=== PATIENT | female | born 1965 | race Caucasian/White ===

== ENCOUNTER 2018-04-16 07:23 | Day surgery (SDC) | payer BC ==
[2018-04-11 12:29] VITALS: BMI 33.0
[2018-04-16 08:34] LABS: BASO # 0.05 K/mm3 (0.0-2.0); BASO % 0.4 % (0.0-3.0); EOS # 0.5 (0.0-0.7); EOS % 4.3 % (1.5-5.0); GRAN # 7.11 (1.4-6.5); GRAN % 63.9 % (50.0-68.0); HEMOGLOBIN 14.8 g/dL (12.0-16.0); LYMPH # 2.8 (1.2-3.4); LYMPH % 24.8 % (22.0-35.0); MEAN CELL VOLUME 83.4 fl (80.0-105.0); MEAN CORPUSCULAR HEMOGLOBIN 28.6 pg (25.0-35.0); MEAN CORPUSCULAR HGB CONC 34.3 g/dl (31.0-37.0); MEAN PLATELET VOLUME 10.4 fl (7.0-11.0); MONO # 0.7 (0.1-0.6); MONO % 6.6 % (1.0-6.0); RBC 5.18 10^6/uL (3.5-6.1); RED CELL DISTRIBUTION WIDTH 13.5 % (11.5-14.5); WHITE BLOOD COUNT 11.2 10^3/uL (4.5-11.0)
[2018-04-16 08:43] LABS: BLOOD UREA NITROGEN 29 mg/dL (7-21); CALCIUM 9.6 mg/dL (8.4-10.5); GFR NON-AFRICAN AMERICAN > 60
[2018-04-16 08:44] LABS: INR 0.89; PARTIAL THROMBOPLASTIN TIME 29.6 Seconds (25.1-36.5); PROTHROMBIN TIME 10.2 SECONDS (9.4-12.5)
[2018-04-16] MEDS ORDERED: Iodixanol 320 MG/ML 200 ML BOTTLE IV ONE (10:59)
[2018-04-16] MEDS ORDERED: Lidocaine 2% Inj (20ml) ONE (10:59)
[2018-04-16] MEDS ORDERED: Midazolam 2 MG/2 ML VIAL ONE ×2 (11:11→11:15)
[2018-04-16] MEDS ORDERED: Eptifibatide 20 mg/10mL Inj IVP ONE (11:27)
[2018-04-16] MEDS ORDERED: Iohexol 350mgl/ml 50 ML ONE (11:35)
[2018-04-16] MEDS ORDERED: Eptifibatide 0.75 mg/ml 75 MG/100 ML BOTTLE IV ONE (11:36)
[2018-04-16] MEDS ORDERED: Iodixanol 320 MG/ML 100 ML BOTTLE IV ONE (11:42)
--- NOTE | 2018-04-16 11:45 | CARD ---
APPROVED REPORT Date of service: 04/16/2018 EKG Measurement Heart [id number] IN 222P59 [id number] <Conclusion> Sinus rhythm with 1st degree AV block Possible Left atrial enlargement Rightward axis PRWP NSSTW changes Prolonged QTc
[2018-04-16] MEDS ORDERED: Sodium Chloride 0.9% 1,000 ML IV SCH (12:00)
--- NOTE | 2018-04-16 13:16 | CARDCATH ---
PROCEDURE DATE: 04/16/2018 HISTORY: The patient is a 53-year-old woman who presents with progressive exertional angina and shortness of breath. She was found to have mitral regurgitation on echocardiogram. Stress test was notable for exertional anginal symptoms but nuclear studies were negative. Because of this, cardiac catheterization was recommended. PROCEDURE: Left heart catheterization with coronary aortography and left ventriculogram followed by PTCA and stent of 2 lesions in the circumflex artery. The right femoral artery was cannulated with 6-Luxembourger sheath. There were no complications. I performed moderate sedation which included the presence of an independent trained observer that assisted in monitoring the patient's level of consciousness and physiologic status. After administration of Versed and fentanyl, my intra service time was 45 minutes. The findings on catheterization revealed a left ventricle that contracted normally. Estimated ejection fraction was 60-65%. There was 2-3 plus mitral regurgitation noted. Her coronary anatomy revealed a right-dominant circulation. The RCA revealed diffuse atherosclerosis with a 60-70% stenoses in the proximal portion of the posterior lateral branch as well as a 60-70% stenosis at the takeoff of the PDA. The left main artery was unremarkable. The LAD revealed diffuse atherosclerosis throughout its tree. There is 80% stenoses at the takeoff of the first septal embroidery designer followed by another 70-80% stenosis at the takeoff of the first diagonal vessel. The circumflex artery consisted of a large obtuse marginal branch. There is a 70% stenosis in the midportion of the circumflex artery followed by 90% stenosis in the midportion of the obtuse marginal branch. The patient was started on intravenous Angiomax and was given IV Integrilin. The guiding catheter was placed in the ostium of the left main artery. An 0.014 ATW wire was used to cross both lesions in the circumflex artery. This was then followed by 2.0 balloon utilized to predilate both lesions. This was followed by implantation of drug-eluting stents in both lesions of the circumflex artery and obtuse marginal branch. Repeat coronary aortography reveals an excellent result with no residual stenosis and JAUN III flow. Angio-Seal was used to close the femoral artery site. The patient tolerated the procedure well. In summary, the procedure was successful PTCA and stent of 2 lesions in the circumflex artery with drug-eluting stent. Cardiac catheterization reveals triple vessel CAD with normal LV function. 2-3+ mitral regurgitation was noted. Given these findings, the patient will need to remain on aspirin indefinitely and Effient for at least a year. She was intolerant to Plavix. We will reevaluate her mitral regurgitation after revascularizing the circumflex artery. In addition, we will bring her back in 1 week for PTCA and stent of the 2 lesions in the LAD. Ty Box MD
--- NOTE | 2018-04-16 13:42 | CARD ---
APPROVED REPORT Date of service: 04/16/2018 EKG Measurement Heart [id number] LA [id number] <Conclusion> Sinus rhythm with 1st degree AV block Possible Left atrial enlargement PRWP Rightward axis NSSTW changes Prolonged QT
[2018-04-16 23:30] VITALS: RESP 20
--- NOTE | 2018-04-17 00:58 | HP ---
DATE OF EXAM: 04/16/2018 HISTORY OF PRESENT ILLNESS: The patient is a 53-year-old female who was admitted after the patient underwent cardiac catheterization by Dr. Ty Box today. The patient was seen and examined in the cardiac orthodontic laboratory technician. The patient was admitted after the patient underwent a cardiac catheterization and angioplasty of the left circumflex artery. CODE STATUS: Full code. LIVING WILL ADVANCE DIRECTIVE: None. Height is 5 feet 11 inches. ALLERGIES: Penicillin, clopidogrel. The patient's BMI is 33. PAST MEDICAL AND SURGICAL HISTORY: History of hypertension, history of hyperlipidemia, occasional alcohol use, history of tubal ligation. HOME MEDICATIONS: Hydralazine 25 mg twice a day, Norvasc 10 mg daily, Lasix 20 mg daily, Coreg 6.25 twice a day, Hemp extract for anxiety, Lipitor 40 mg daily, Ecotrin 81 mg daily, Plavix 75 mg daily. SOCIAL HISTORY: Occasional alcohol use. Denies smoking. Denies drug use. Denies communicable transmissible disease. PHYSICAL EXAMINATION: GENERAL: The patient was seen in the holding area of the cardiac orthodontic laboratory technician. VITAL SIGNS: T max is 98.4. Telemetry, sinus rhythm, heart rate 74, 78, 82, blood pressure 164/81, 140/78, respirations 17 to 18. HEENT: Head examination is normocephalic, atraumatic. HEENT examination shows pinkish conjunctivae. Anicteric sclerae. Dry oral mucosa. NECK: No neck rigidity. CHEST: Symmetrical. CARDIOPULMONARY: Examination , S2, regular rhythm. No audible murmur, gallop or rub. LUNGS: Shows no audible crackle, rales or wheezing. ABDOMEN: Soft. Positive bowel sound. GENITALIA: Female. RECTAL: Deferred. EXTREMITIES: Shows positive groin dressing. No bleeding, hematoma noted. Positive palpable pulses of the lower extremity noted. MUSCULOSKELETAL: Shows a body mass index of 33.1. Gait examination not tested because the patient is on bedrest. VASCULAR: Palpable pulses. DIAGNOSTIC DATA: On 04/16/2018, WBC 11.2, hemoglobin and hematocrit 14.8, 43.2, platelet 312. PT/PTT 10.2, 29.6. Sodium 138, potassium 4.0, chloride 101, CO2 28, anion gap 13, BUN 29, creatinine 0.7, GFR is greater than 60, glucose 145, calcium 9.6. Urine negative. The patient's blood type is B+. The patient had a cardiac catheterization with successful angioplasty and stent placement of the two lesions of the left circumflex artery with drug-eluting stent, +2 to 3+ mitral regurgitation was noted. IMPRESSION AND PLAN: 1. Exertional angina with symptoms of exertional chest pain and shortness of breath. 2. Moderate mitral regurgitation. 3. Abnormal cardiac stress test with exertional angina. 4. Status post cardiac catheterization. 5. 60% to 70% stenosis of the proximal portion of the posterior lateral branch of the right coronary artery and 60% to 70% stenosis at the takeoff of the posterior PDA. 6. 80% stenosis at the takeoff of the first septal oracle forms developer followed by a 70% to 80% stenosis of the takeoff of the first diagonal vessel. 7. 70% stenosis of the midportion of the left circumflex followed by 90% stenosis of the midportion of the obtuse marginal branch. 8. Status post successful angioplasty and stent placement of the two lesions of the left circumflex artery with drug-eluting stent placement. 9. Triple-vessel coronary artery disease. 10. 2 to 3+ mitral regurgitation. 11. History of hypertension, hyperlipidemia. 12. Hyperglycemia. 13. B positive blood type. 14. Exertional angina with dyspnea on exertion with minimal exertion during the nuclear stress test. 15. Left ventricular ejection fraction of 53%. 16. 2 to 3+ mitral regurgitation. 17. Triple-vessel coronary artery disease. 18. Right axis deviation. 19. Hypertensive cardiovascular disease. 20. Left ventricular ejection fraction of 64% on the echocardiogram. 21. Concentric left ventricular hypertrophy. 22. Cwdtpdpm-rd-sysqen mitral regurgitation. 23. Mild tricuspid regurgitation. 24. Mnhx-va-unsgxycc pulmonary hypertension with right ventricular systolic pressure of 47 mmHg. 25. Dilated left atrium. 26. 2 to 3+ mitral regurgitation with bzlqflts-oq-wagxgl mitral regurgitation. 27. 60% to 70% stenosis of the proximal portion of the posterior lateral branch as well a 60% to 70% stenosis at the takeoff of the PDA. 28. 70% to 80% of the mid left circumflex followed by 90% stenosis of the distal mid portion of the obtuse marginal branch. 29. Right axis deviation. PLAN: At this time, the patient is to be admitted and on telemetry post cardiac catheterization. As per Cardiology recommendation, the patient has been ordered repeat CMP, LFT, magnesium phosphorus, lipid panel, hemoglobin A1c, fructosamine, GlycoMark ordered. Repeat CBC ordered. Cardiology consultation ordered. The patient is started on Colace 100 three times a day, Coreg 6.25 twice a day, aspirin 81 mg daily, Effient 10 mg daily, Lipitor 40 mg daily, Protonix 40 mg daily, Tylenol 650 mg p.o. suppository every 6 p.r.n., Zofran 4 mg IV every 4 p.r.n., incentive spirometry, oxygen 2 liters. Repeat EKG in a.m. ordered. Heart-healthy diet ordered. The patient is on bedrest, post cardiac catheterization, post angioplasty. At present, the patient's further management will be dependent upon the patient's clinical condition, hemodynamic status and as per the patient response to therapeutic intervention, as per the patient's diagnostic test results and as per recommendation by Cardiology. At present, the patient is awaiting for a telemetry bed. The patient was seen in the cardiac catheterization holding area. The patient's further management will be dependent upon the patient's clinical condition, hemodynamic status and as per the patient response to therapeutic intervention, as per the patient's diagnostic test results and as per recommendation by all the physician involved in the care of the patient. If the patient stays stable overnight without any complications, the patient will be considered for discharge tomorrow after cleared by Cardiology. Dictated and electronically signed, not read. Kannan Werner MD
[2018-04-17 03:19] LABS: BASO # 0.03 K/mm3 (0.0-2.0); BASO % 0.3 % (0.0-3.0); EOS # 0.4 (0.0-0.7); EOS % 3.7 % (1.5-5.0); GRAN # 8.25 (1.4-6.5); GRAN % 68.7 % (50.0-68.0); HEMOGLOBIN 13.9 g/dL (12.0-16.0); LYMPH # 2.6 (1.2-3.4); LYMPH % 21.5 % (22.0-35.0); MEAN CELL VOLUME 83.6 fl (80.0-105.0); MEAN CORPUSCULAR HEMOGLOBIN 28.2 pg (25.0-35.0); MEAN CORPUSCULAR HGB CONC 33.7 g/dl (31.0-37.0); MEAN PLATELET VOLUME 10.4 fl (7.0-11.0); MONO # 0.7 (0.1-0.6); MONO % 5.8 % (1.0-6.0); RBC 4.93 10^6/uL (3.5-6.1); RED CELL DISTRIBUTION WIDTH 13.7 % (11.5-14.5)
[2018-04-17 04:10] LABS: TROPONIN I 0.03 ng/mL
[2018-04-17 04:11] LABS: LDL CHOLESTEROL 197 mg/dL (0-129)
[2018-04-17 04:14] LABS: ALB/GLOB RATIO 1.1 (1.1-1.8); ALBUMIN 4.1 g/dL (3.0-4.8); ALT/SGPT 63 U/L (7-56); AST/SGOT 30 U/L (14-36); BILIRUBIN,DIRECT 0.2 mg/dL (0.0-0.4); BLOOD UREA NITROGEN 23 mg/dL (7-21); CALCIUM 9.2 mg/dL (8.4-10.5); GFR NON-AFRICAN AMERICAN > 60; HDL CHOLESTEROL 53 mg/dL (29-60)
[2018-04-17 05:59] VITALS: BP 142/67; PULSE 70; TEMP 98.4; O2SAT 96
[2018-04-17] MEDS ORDERED: Pantoprazole 40 mg EC Tab PO SCH (06:00)
--- NOTE | 2018-04-17 11:10 | PN ---
CARDIOLOGY FOLLOWUP DATE: 04/17/2018 SUBJECTIVE: The patient is chest pain free. Her dyspnea is much improved. Blood pressure 142/67 and heart rates in the 70s. There were periods of AV block noted. PHYSICAL EXAMINATION: NECK: Negative JVD. LUNGS: Without rales. HEART: S1 and S2. EXTREMITIES: Without edema. LABORATORY DATA: Hemoglobin is 13.9. Chemistries, BUN and creatinine unremarkable. IMPRESSION: 1. Stable post percutaneous transluminal coronary angioplasty and stent of two critical lesions in the circumflex artery. 2. Mitral regurgitation. 3. Dyspnea. 4. Heart block secondary to beta-blockers. 5. Hypercholesterolemia. 6. Diabetes mellitus. Given these findings, the patient can be discharged today. She will need to go home on aspirin, Effient, statin therapy. We will discontinue her Coreg. The patient will return in one week for PTCA and stent of the LAD. Ty Box MD
[2018-04-18 02:31] LABS: FRUCTOSAMINE 271 umol/L (190-270)
--- NOTE | 2018-04-18 08:58 | DS ---
LOCATION: The patient is seen in room 272, bed 2. HISTORY OF PRESENT ILLNESS: The patient is sitting up in the bed. The patient was also seen by Dr. Box from Cardiology. The patient's overnight nurse's notes were reviewed. The patient had a telemetry, the patient's telemetry was noted to have some pauses, but the patient was asymptomatic. The patient denies any chest pain, denies shortness of breath. Denies nausea, vomiting, diarrhea or constipation. Denies hemoptysis, hematemesis, melena or pain in the groin. PHYSICAL EXAMINATION: VITAL SIGNS: T-max 98.4. Telemetry shows as mentioned couple of episodes of sinus pauses. T-max 98.4 present. Telemetry shows sinus rhythm, heart rate 67-70, blood pressure 142-67, respirations 20, O2 sat 96%. HEENT: Head: Normocephalic, atraumatic. HEENT examination shows pink conjunctivae. Anicteric sclerae. No oropharyngeal lesion. No neck rigidity. CHEST: Kyphosis. LUNGS: Shows no audible crackle, rales or wheezing. CARDIOVASCULAR: S1, S2, regular rhythm. Positive systolic murmur left sternal border, right second intercostal space, left second intercostal space. ABDOMEN: Soft. Positive bowel sounds. No palpable hepatosplenomegaly. GENITALIA: Female. RECTAL: Deferred. EXTREMITIES: Shows no pitting edema, no calf tenderness, no Homans' sign. NEUROLOGIC: The patient is alert, awake, oriented x3, is able to move upper and lower extremities without assistance. Gait examination is not tested. VASCULAR: Palpable pulses. Right groin examination was unremarkable. No hematoma. No ecchymosis. Positive pedal and lower extremity pulses noted. MUSCULOSKELETAL: Shows a body mass index of 33. NEUROLOGIC: The patient is alert, awake, oriented x3, is able to move upper and lower extremities without assistance. Gait examination is not tested. PSYCHIATRIC: Negative. DIAGNOSTICS: 04/17/2018, WBC 12.0, hemoglobin/hematocrit 13.9, 41.2, platelet 292. Sodium 37, potassium 4.3, chloride 101, CO2 29, anion gap 11, BUN 23, creatinine 0.8. Glucose 149, calcium 9.2, phosphorus 4.5, magnesium 2.1, AST 63. Troponin is negative at 0.3, cholesterol 302, LDL 197, HDL 53. Urine, SCDs negative, blood type B+. FINAL IMPRESSION, PLAN AND DISCHARGE DIAGNOSES: 1. Exertional angina with symptoms of shortness of breath, dyspnea on exertion, paroxysmal nocturnal dyspnea and orthopnea. 2. Triple-vessel coronary artery disease. 3. Status post successful angioplasty and stent placement of the left circumflex. 4. 5. . 6. Exertional angina. 7. Sinus pauses. 8. Asymptomatic sinus arrest. 9. First degree atrioventricular block. 10. Possible reactive leukocytosis. 11. Hyperglycemia. 12. Severe hypercholesterolemia with elevated LDL of 197. 13. Left ventricular ejection fraction of 64%. 14. Concentric left ventricular hypertrophy. 15. Mildly dilated left atrium. 16. Ljlrkuus-rs-owyegm mitral regurgitation. 17. Thickened aortic valve. 18. Mild tricuspid regurgitation with vwoi-tq-nqmzuyju pulmonary hypertension with right ventricular systolic pressure of 47 mmHg. 19. History of hypertension. 20. History of hyperlipidemia. PLAN: At this time, the patient is to be discharged home. The patient is scheduled to return for cardiac catheterization on 04/24/2018 for angioplasty of the left anterior descending artery. The patient was advised to stop Coreg. The patient is started on Effient 10 mg p.o. daily. DISCHARGE MEDICATIONS: Norvasc 10 mg daily day, Ecotrin 81 mg daily, Lipitor 40 mg daily, Lasix 20 mg daily, Hemp Extract every 8 hours, hydralazine 25 mg twice a day, Effient 10 mg daily. Patient is discharged home with discharge followup with Dr. Ty Box on 04/24/2018 for angioplasty and stent placement of the left anterior descending artery. During this hospitalization, the patient was extensively explained about the details of her medical condition. Dictated and electronically signed, not read. Kannan Werner MD
== END 2018-04-17 11:39 | disposition home or self-care (01) ==
LOC: CATH 07:23 → 2RSO 12:51 → CATH 04-17 11:39
PROVIDERS: ATTEND Internal Medicine Cardiovascular Disease
DX: I25.119 Atherosclerotic heart disease of native coronary artery with unspecified angina pectoris (principal); I34.0 Nonrheumatic mitral (valve) insufficiency; I11.9 Hypertensive heart disease without heart failure; I27.20 Pulmonary hypertension, unspecified; I44.0 Atrioventricular block, first degree; E11.65 Type 2 diabetes mellitus with hyperglycemia; E78.5 Hyperlipidemia, unspecified; E78.00 Pure hypercholesterolemia, unspecified; Z79.82 Long term (current) use of aspirin; Z88.0 Allergy status to penicillin
CPT/HCPCS: 36415 ×2; 80048; 80053; 80061; 82248; 82985; 83036; 83735; 84100; 84378; 84484; 84703; 85025 ×2; 85610; 85730; 86850; 86900; 93005; 93458; 99152; 99153; C1725; C1760; C1769 ×2; C1874; C1887; C1894; C2629; C9600; J0583; J1327 ×2; J1644; J2250; J2405; J3010; J7030; J7120; Q9966; Q9967

== ENCOUNTER 2018-04-24 06:11 | Day surgery (SDC) | payer BC ==
[2018-04-18 08:41] VITALS: BMI 32.6
[2018-04-24 07:01] LABS: BASO # 0.05 K/mm3 (0.0-2.0); BASO % 0.4 % (0.0-3.0); EOS # 0.5 (0.0-0.7); EOS % 4.2 % (1.5-5.0); GRAN # 8.25 (1.4-6.5); HEMOGLOBIN 12.9 g/dL (12.0-16.0); LYMPH # 2.1 (1.2-3.4); LYMPH % 17.7 % (22.0-35.0); MEAN CELL VOLUME 84.3 fl (80.0-105.0); MEAN CORPUSCULAR HEMOGLOBIN 27.8 pg (25.0-35.0); MEAN PLATELET VOLUME 10.2 fl (7.0-11.0); MONO # 0.9 (0.1-0.6); MONO % 7.7 % (1.0-6.0); RBC 4.64 10^6/uL (3.5-6.1); RED CELL DISTRIBUTION WIDTH 13.5 % (11.5-14.5); WHITE BLOOD COUNT 11.8 10^3/uL (4.5-11.0)
[2018-04-24] MEDS ORDERED: Lidocaine 2% Inj (20ml) ONE (07:05)
[2018-04-24] MEDS ORDERED: Phenylephrine 10 mg/ml Inj ONE (07:05)
[2018-04-24] MEDS ORDERED: Heparin 2,000 ML IV ONE (07:07)
[2018-04-24] MEDS ORDERED: Iohexol 350mgl/ml 50 ML ONE (07:07)
[2018-04-24] MEDS ORDERED: Nitroglycerin 50mg in D5W 0 MG/0 ML BOTTLE IV ONE (07:07)
[2018-04-24] MEDS ORDERED: Iodixanol 320 MG/ML 100 ML BOTTLE IV ONE ×2 (07:07→08:18)
[2018-04-24] MEDS ORDERED: Iodixanol 320 MG/ML 200 ML BOTTLE IV ONE (07:07)
[2018-04-24 07:10] LABS: INR 0.97; PARTIAL THROMBOPLASTIN TIME 28.8 Seconds (25.1-36.5); PROTHROMBIN TIME 11.1 SECONDS (9.4-12.5)
[2018-04-24 07:12] LABS: BLOOD UREA NITROGEN 23 mg/dL (7-21); CALCIUM 8.9 mg/dL (8.4-10.5); GFR NON-AFRICAN AMERICAN > 60; HDL CHOLESTEROL 50 mg/dL (29-60)
[2018-04-24 07:22] LABS: LDL CHOLESTEROL 169 mg/dL (0-129)
[2018-04-24] MEDS ORDERED: Famotidine 20mg/50ml 20 MG/50 ML BAG IVPB ONE (07:32)
[2018-04-24] MEDS ORDERED: DiphenhydrAMINE 50 mg/ml Inj ONE (07:32)
[2018-04-24] MEDS ORDERED: Midazolam 2 MG/2 ML VIAL ONE ×3 (08:07→08:53)
[2018-04-24] MEDS ORDERED: Flumazenil 0.1 mg/ml Inj (5ml) IVP ONE (09:06)
[2018-04-24] MEDS ORDERED: Naloxone 0.4 mg/ml Inj (Adult) ONE (09:10)
[2018-04-24] MEDS ORDERED: Sodium Chloride 0.9% 1,000 ML IV SCH (09:15)
--- NOTE | 2018-04-24 12:08 | CARDCATH ---
PROCEDURE DATE: 04/24/2018 HISTORY The patient is a 53-year-old woman who has multiple cardiac risk factors and documented multivessel CAD. She presents for PTCA and stent of her other vessels. She underwent stenting of her circumflex in the past. She has had a bed reaction to Plavix. She now complains of pruritus with Effient. Because of this, we will place her on Brilinta. PROCEDURE: Left heart catheterization with coronary aortography, left ventriculogram followed by PTCA and stent of an LAD and PTCA and stent of an RCA. The left femoral artery was cannulated with 6-Israeli sheath. There were no complications. Findings on catheterization revealed a patent stent in the circumflex artery x2. At the proximal portion of the LAD at the takeoff of the septal street light lamp cleaner, there is an eccentric 70% stenosis noted. In the midportion of the LAD at the takeoff of the diagonal vessel, there is a 70-80% stenoses noted. The RCA was a dominant vessel and revealed diffuse atherosclerosis. In the takeoff of a large posterior lateral branch, there is a long 70-80% stenosis noted. The patient was started on intravenous Angiomax on the fluoroscopic guide, the guider was placed in the left main artery. An 0.014 ATW wire was used to cross the multiple lesions in the LAD. Two drug-eluting stents were placed in the midportion of the LAD and one in the proximal portion. Repeat coronary aortography revealed an excellent result with no residual stenosis and JAUN III flow. The guider was exchanged for a right guider which was placed in the ostium of the RCA and 0.014 ATW wire was used to cross the lesion in the posterior lateral branch. A 2.5 x 18 mm drug-eluting stent was placed and deployed at 14 atmospheres of pressure. Repeat coronary aortography revealed an excellent result with no residual stenosis and JAUN III flow. Left ventriculogram was performed after these procedures. The left ventricle reveals an EF of 70%. The mitral regurgitation decreased from 3+ down to 1 to 2+. The patient tolerated the procedure well. Angio-Seal was used to close left femoral artery site. In summary, the procedure was successful PTCA and stent of 2 lesions in the LAD, PTCA and stent of the posterior lateral branch of the right coronary artery. All drug-eluting stents were utilized. Cardiac catheterization reveals triple vessel CAD including patent stents in the 2 lesions of the circumflex artery placed last week. LV function is normal with decrease of her mitral regurgitation from a last procedure. Given these findings, the patient will need to remain on aspirin indefinitely and we will change it to Brilinta since she has been intolerant to Plavix and ALLERGIC TO EFFIENT. She will need to undergo a cardiac risk reduction program. Ty Box MD
[2018-04-24] MEDS: Insulin Lispro (humaLOG) LOW Coverage SC SCH ×2 (12:33→18:23)
[2018-04-24 16:29] VITALS: O2SAT 97
--- NOTE | 2018-04-24 19:31 | CARD ---
APPROVED REPORT Date of service: 04/24/2018 EKG Measurement Heart [id number] <Conclusion> Sinus rhythm with 1st degree AV block Possible Left atrial enlargement Rightward axis Nonspecific ST changes Abnormal ECG
--- NOTE | 2018-04-24 23:10 | CARD ---
APPROVED REPORT Date of service: 04/24/2018 EKG Measurement Heart [id number] ID [id number] <Conclusion> Sinus rhythm with 1st degree AV block Possible Left atrial enlargement Rightward axis Nonspecific ST abnormality Abnormal ECG
--- NOTE | 2018-04-25 01:00 | HP ---
DATE OF EXAM: 04/24/2018 HISTORY OF PRESENT ILLNESS: The patient is a 53-year-old [place] female admitted after the cardiac catheterization and angioplasty today to telemetry 274, bed 2. The patient underwent schedule cardiac catheterization and angioplasty today by Dr. Ty Box and underwent angioplasty and stent of the LAD and RCA artery with drug-eluting stent. The patient was started on aspirin and the patient was started on Brilinta. The patient was found to be intolerant to Plavix and allergic to Effient. The patient is seen and examined in room 274, bed 2. The patient is seen lying in the bed. CODE STATUS: Full code. Height is 5 feet 1 inch. ALLERGIES: TO PENICILLIN, PLAVIX AND EFFIENT. Weight is 175. BMI is 33. HOME MEDICATIONS: Hydralazine 25 twice a day, Norvasc 10 mg daily, Effient 10 mg daily, aspirin 81 mg daily, hemp extract daily, Lipitor 40 mg daily. PAST MEDICAL AND SURGICAL HISTORY: History of obesity, history of hypertension, history of type 2 diabetes mellitus, history of hyperlipidemia, history of occasional alcohol use, history of tubal ligation. Past medical history is also significant for multivessel coronary artery disease, history of angioplasty and stent placement of the left circumflex, history of exertional angina, history of 2 to 3+ moderate mitral regurgitation, history of triple-vessel coronary artery disease, history of anxiety disorder, history of tubal ligation. Past medical history is significant for history of asymptomatic sinus arrest, history of first-degree AV block, history of hypercholesterolemia, history of thickened aortic valve, history of moderate pulmonary hypertension with right ventricular systolic pressure of 47 mmHg, mild tricuspid regurgitation, history of abnormal stress test, history of hypertensive cardiovascular disease. FAMILY HISTORY: Positive for coronary artery disease. Positive for hypertension. SOCIAL HISTORY: The patient denies substance abuse, alcohol or smoking. PHYSICAL EXAMINATION: GENERAL: Patient is seen lying in the bed. VITAL SIGNS: T-max is 98.6 to 98.7. Telemetry shows sinus rhythm, heart rate 94, 99, 102,103, blood pressure is 156/74, 150/85, 150/83, 146/75, 132/80, 136/71, respiration 22 to 20, O2 sat 97%. HEENT: Head is normocephalic. HEENT examination shows pinkish pale conjunctivae. Anicteric sclerae. No oropharyngeal lesion. NECK: No neck rigidity. CHEST: Symmetrical. CARDIOPULMONARY: S1, S2, regular rhythm. Questionable positive systolic murmur at the left sternal border, right second intercostal space, left second intercostal space. LUNGS: Shows no audible crackle, rales or wheezing. ABDOMEN: Soft, obese. Positive bowel sounds. No palpable hepatosplenomegaly noted. Positive left groin Angio-Seal noted. Positive right groin area swelling and a noted. EXTREMITIES: Swelling of the right groin is tender to touch. Positive palpable pulses of the bilateral lower extremity noted. MUSCULOSKELETAL: Shows a body mass index of 37. Gait examination is not tested as the patient is lying in the bed and bedrest, post angioplasty. Musculoskeletal examination as above. PSYCHIATRIC: Negative. DIAGNOSTICS: On 04/24/2018, WBC 11.8, hemoglobin and hematocrit 12.9 and 39.1, platelets 306. Granulocytes 70% segs. PT/PTT 11.1, and 28.8. Sodium 138, potassium 3.8, chloride 102, CO2 28, anion gap 11, BUN 23, creatinine 0.6, GFR is greater than 60, glucose 153. Fingerstick blood sugar 187, 236, 166, calcium 8.9, triglyceride 145. Total cholesterol 270, LDL 169, HDL 50. Blood type is B positive. The patient underwent cardiac catheterization, angioplasty and stent placement which was reviewed. IMPRESSION: 1. Multivessel coronary artery disease. 2. History of exertional angina. 3. Status post successful angioplasty and drug-eluting stent placement of the left anterior descending and angioplasty and stent placement of the posterior lateral branch of the right coronary artery. 4. Resolving 2 to 3+ mitral regurgitation. 5. First degree AV block. 6. Right axis deviation. 7. Hypertensive cardiovascular disease. 8. Patent stent of the left circumflex artery. 9. Eccentric 70% stenosis of the proximal portion of the left anterior descending at the takeoff of the septal pillow filler. 10. A 70% to 80% stenosis of the midportion of the left anterior descending at the takeoff of the diagonal vessel. 11. Long 70%-80% stenosis at the takeoff of the large posterior lateral branch of the right coronary artery. 12. Left ventricle ejection fraction of 70%. 13. Resolving and improving mitral regurgitation to 1+. 14. Questionable right groin hematoma. 15. Successful angioplasty and stent placement of the two lesions of the left anterior descending artery and angioplasty and stent placement of the posterior lateral branch of the right coronary artery. 16. Diabetes mellitus with hemoglobin A1c of 7.4 and hyperglycemia. 17. Obesity with elevated body mass index of 33. 18. History of pulmonary hypertension. 19. Moderate mitral regurgitation. 20. Right axis deviation. 21. Hyperglycemia. 22. Hypercholesteremia with elevated LDL. 23. Mild prerenal kidney injury. 24. PLAVIX, EFFIENT AND PENICILLIN ALLERGY. PLAN: At this time, the patient has been admitted to post angioplasty telemetry unit. The patient has been ordered repeat CBC and CMP in the morning. Cardiology consultation has been ordered. The patient has been ordered a stat Doppler of the right groin. The preliminary results was noted that it is negative for any pseudoaneurysm on negative for hematoma. These are preliminary results. The patient is to be continued on bedrest and post angioplasty protocol. The patient is started on Brilinta 90 mg twice a day, Ecotrin 81 mg daily Humalog low-dose sliding scale coverage, Lipitor 40 mg daily, Norvasc 10 mg daily. Repeat EKG has been ordered by Dr. Ty Box. Repeat echo has been ordered by Dr. Ty Bxo for tomorrow. The patient is on heart-healthy diet. The patient has been ordered fingerstick blood sugar a.c. and at bedtime. The patient has been ordered solderer electronic evaluation. The patient has been advised details of her diagnosis of diabetes, coronary artery disease, hypertension, hyperlipidemia, obesity. The patient was educated about diet and weight loss, exercise compliance with medication etc, for which she acknowledged and understand. At this time, the patient is admitted to telemetry. The patient's further management will be dependent upon the patient's clinical condition, hemodynamic status and as per the patient response to therapeutic intervention, as per the patient's diagnostic test results and as per recommendation by all the physicians involved in the care of the patient. The patient will be continued to be managed on a post angioplasty unit on telemetry and with close Cardiology followup. At present, the patient is seen and examined, lying in the bed. The patient is on bedrest post angioplasty cardiac catheterization. Dictated and electronically signed, not read. Kannan Werner MD
[2018-04-25 06:39] LABS: BASO # 0.02 K/mm3 (0.0-2.0); BASO % 0.1 % (0.0-3.0); GRAN # 12.95 (1.4-6.5); GRAN % 85.6 % (50.0-68.0); HEMOGLOBIN 13.9 g/dL (12.0-16.0); LYMPH # 1.3 (1.2-3.4); LYMPH % 8.9 % (22.0-35.0); MEAN CELL VOLUME 83.4 fl (80.0-105.0); MEAN CORPUSCULAR HEMOGLOBIN 27.8 pg (25.0-35.0); MEAN CORPUSCULAR HGB CONC 33.3 g/dl (31.0-37.0); MEAN PLATELET VOLUME 10.4 fl (7.0-11.0); MONO # 0.8 (0.1-0.6); MONO % 5.4 % (1.0-6.0); RED CELL DISTRIBUTION WIDTH 13.6 % (11.5-14.5); WHITE BLOOD COUNT 15.1 10^3/uL (4.5-11.0)
[2018-04-25 07:23] LABS: BLOOD UREA NITROGEN 16 mg/dL (7-21); CALCIUM 9.6 mg/dL (8.4-10.5); GFR NON-AFRICAN AMERICAN > 60
[2018-04-25] MEDS: Insulin Lispro (humaLOG) LOW Coverage SC SCH ×2 (10:29→11:54)
--- NOTE | 2018-04-25 11:34 | PN ---
DATE: 04/25/2018 SUBJECTIVE: The patient is asymptomatic, ambulating on the floor. PHYSICAL EXAMINATION: VITAL SIGNS: Blood pressure 152/74. The heart rate in the 90s. NECK: Negative JVD. LUNGS: Without rales. HEART: S1, S2. EXTREMITIES: Without edema. : The groin site is stable. LABORATORY DATA: Hemoglobin is 13.9. Elevated white count is secondary to steroid that we had given for allergic reaction. The BUN and creatinine are unremarkable. The glucose is 157. DIAGNOSTIC DATA: Preliminary echocardiogram reveals [id number] mitral regurgitation, which is less than before. Preliminary ultrasound of the right groin shows no pseudoaneurysm. IMPRESSION: 1. Stable post multivessel percutaneous transluminal coronary angioplasty and stent. 2. Hypertension. 3. Hypercholesterolemia. 4. Coronary artery disease. 5. Allergy to EFFIENT and intolerance to PLAVIX. RECOMMENDATION: Given these findings, the patient will be discharged on aspirin, Brilinta 90 b.i.d., statin therapy and Norvasc for her blood pressure. I have enrolled her in a cardiac rehab program and have discussed the need for cardiac risk reduction program. Ty Box MD
--- NOTE | 2018-04-25 12:44 | CARD ---
APPROVED REPORT Date of service: 04/25/2018 EXAM: Two-dimensional and M-mode echocardiogram with Doppler and color Doppler. INDICATION MITRAL REGURGE 2D DIMENSIONS Left Atrium (2D)3.9 (1.6-4.0cm)IVSd1.5 (0.7-1.1cm) LVDd4.9 (3.9-5.9cm)PWd1.2 (0.7-1.1cm) LVDs3.2 (2.5-4.0cm)FS (%) 35.8 % LVEF (%)65.1 (>50%) M-Mode DIMENSIONS Aortic Root2.70 (2.2-3.7cm)Aortic Cusp Exc.1.70 (1.5-2.0cm) Aortic Valve AoV Peak [id number]/Fernando Peak GR.7mmHg Mitral Valve E/A ratio0.0 TDI E/Lateral E'0.0E/Medial E'0.0 Tricuspid Valve TR Peak [id number] [id number] Peak Gr.17mmHg [id number] LEFT VENTRICLE There is mild concentric left ventricular hypertrophy. The left ventricular function is normal. The left ventricular ejection fraction is within the normal range. RIGHT VENTRICLE The right ventricle is normal size. ATRIA The left atrium is mildly dilated. The right atrium size is normal. AORTIC VALVE The aortic valve is thickened but opens well. MITRAL VALVE The mitral valve is thickened but opens well. Mitral regurgitation is mild to moderate. TRICUSPID VALVE The tricuspid valve leaflets are thickened , but open well. There is mild tricuspid regurgitation. There is no pulmonary hypertension. PULMONIC VALVE The pulmonary valve is normal in structure. PERICARDIAL EFFUSION There is no pericardial effusion. <Conclusion> LVH with good LV function Dilated LA Mild to moderate MR Mild TR No pulmonary hypertension
[2018-04-25 14:08] VITALS: BP 166/90; PULSE 89; RESP 16; TEMP 98.1
--- NOTE | 2018-04-25 20:31 | CARD ---
APPROVED REPORT Date of service: 04/25/2018 EKG Measurement Heart [id number] <Conclusion> Sinus rhythm with 1st degree AV block Possible Left atrial enlargement Rightward axis Poor R wave progression in Precordial leads Abnormal ECG
--- NOTE | 2018-04-25 22:55 | US ---
PROCEDURE: Duplex arterial ultrasound of the right groin. HISTORY: Recent cardiac catheterization. Pain and pulsatile mass in the right groin. Evaluate for pseudoaneurysm or fistula. PHYSICIAN(S): Ty Chamorro MD. FINDINGS: The right common femoral artery is patent with a normal triphasic waveform. No sonographic evidence of a pseudoaneurysm or AV fistula is seen. The right superficial femoral artery and profunda femoral artery are patent proximally. The visualized venous segments the right groin are patent and compressible. IMPRESSION: 1. No sonographic evidence for pseudoaneurysm or AV fistula in the right groin.
== END 2018-04-25 14:24 | disposition home or self-care (01) ==
LOC: CATH 06:11 → 2RSO 09:35 → CATH 04-25 14:24
PROVIDERS: ATTEND Internal Medicine Cardiovascular Disease
DX: I25.10 Atherosclerotic heart disease of native coronary artery without angina pectoris (principal); I11.9 Hypertensive heart disease without heart failure; I27.20 Pulmonary hypertension, unspecified; E78.00 Pure hypercholesterolemia, unspecified; E11.65 Type 2 diabetes mellitus with hyperglycemia; E66.9 Obesity, unspecified; Z68.33 Body mass index [BMI] 33.0-33.9, adult; I34.0 Nonrheumatic mitral (valve) insufficiency; Z95.5 Presence of coronary angioplasty implant and graft; F41.9 Anxiety disorder, unspecified; Z79.02 Long term (current) use of antithrombotics/antiplatelets; Z79.899 Other long term (current) drug therapy; Z82.49 Family history of ischemic heart disease and other diseases of the circulatory system; Z88.0 Allergy status to penicillin; Z88.8 Allergy status to other drugs, medicaments and biological substances; Z98.51 Tubal ligation status
CPT/HCPCS: 36415; 80048; 80061; 82948; 85025; 85610; 85730; 86850; 86900; 93005; 93458; 93923; 99152; 99153; C1760; C1769 ×2; C1874 ×3; C1887 ×3; C2629; C9600; C9601; J0360; J0583; J1200; J1644; J2250; J2310; J2930; J3010; J7030; Q9966; Q9967 ×2